=== PATIENT | female | born 1995 | race Caucasian/White ===

== ENCOUNTER 2017-05-17 14:15 | Emergency (ER) | payer OTHER ==
[~2017-05-17] VITALS: Ht 162.6 cm; Wt 75.0 kg
[~2017-05-17 14:15] MED LIST: FERR SULFATE325 MG PO; KLOR-CON M2020 MEQ OR; PERCOCET 5/321 COMBO PO; PRENATAL3 PO; PRILOSEC OTC20 MG OR; ZOFRAN ODT8 MG OR
[2017-05-17] MEDS ORDERED: OB COMPLETE/DHA PO (14:45)
[2017-05-17 15:07] LABS: URINE BILIRUBIN - DIPSTICK NEGATIVE (NEGATIVE); URINE BLOOD DIPSTICK NEGATIVE (NEGATIVE); URINE CLARITY CLEAR; URINE COLOR YELLOW; URINE GLUCOSE - DIPSTICK NEGATIVE (NEGATIVE); URINE KETONE NEGATIVE (NEGATIVE); URINE LEUK ESTERASE NEGATIVE (NEGATIVE); URINE NITRITE - DIPSTICK NEGATIVE (Negative); URINE PROTEIN - DIPSTICK NEGATIVE (NEG-TRACE); URINE SPECIFIC GRAVITY >=1.030; URINE UROBILINOGEN - DIPSTICK 0.2 E.U./dL (0.2)
[2017-05-17 15:12] LABS: HEMATOCRIT 31.7 % (37.0-47.0); HEMOGLOBIN 11.1 g/dl (12.0-16.0); IMMATURE GRANULOCYTES 0.4 % (0.0-1.0); MEAN CELL VOLUME 90.1 fL CALC (80.0-100.0); MEAN CORPUSCULAR HGB 31.5 pG CALC (26.0-32.0); NEUT# 6.62 thou/uL (2.00-7.15); RED BLOOD COUNT 3.52 mill/uL (4.20-5.60); RED CELL DISTRI WIDTH 13.1 % (11.5-15.5)
[2017-05-17 15:22] LABS: ALBUMIN 4.1 g/dL (3.2-5.0); ALKALINE PHOSPHATASE 41 u/l (38-126); ANION GAP 16 (6-22 (CALC)); BILIRUBIN, TOTAL 0.3 mg/dL (0.0-1.4); BUN 9 mg/dL (7-17); BUN/CREATININE RATIO 20 (12-20 (CALC)); CALCIUM 9.2 mg/dL (8.4-10.2); CARBON DIOXIDE 19 mmol/l (22-30); CHLORIDE 109 mmol/l (95-108); CREATININE 0.5 mg/dL (0.5-1.0); GFR > 60 ML/MIN (>=60 (CALC)); GFR FOR AFR.AMER. > 60 ML/MIN (>=60 (CALC)); GLUCOSE 112 mg/dL (65-105); POTASSIUM 3.5 mmol/l (3.5-5.1); SGOT/AST 23 u/l (14-36); SGPT/ALT 19 u/l (9-52); SODIUM 141 mmol/l (137-146); TOTAL PROTEIN 6.9 g/dL (6.3-8.2)
[2017-05-17 15:50] VITALS: BP 114/51
[2017-05-17 16:04] LABS: BETA-HCG, QUANT(RESULT NUMBER) 49650 mIU/mL
== END 2017-05-17 16:10 | disposition home or self-care (01) | DRG 552 ==
LOC: ED 14:15
PROVIDERS: Emergency Medicine
DX: M54.5 Low back pain (principal); F17.210 Nicotine dependence, cigarettes, uncomplicated; O99.332 Smoking (tobacco) complicating pregnancy, second trimester; Z3A.16 16 weeks gestation of pregnancy

== ENCOUNTER 2017-09-24 18:18 | Emergency (ER) | payer OTHER ==
[~2017-09-24] VITALS: Ht 162.6 cm; Wt 80.0 kg
[~2017-09-24 18:18] MED LIST changes: +OB COMPLETE/DHA PO
[2017-09-24] MEDS ORDERED: AMOX/K CLAV875 M1 PO (18:35)
[2017-09-24] MEDS ORDERED: MOTRIN800 MG PO (18:48)
[2017-09-24] MEDS ORDERED: TYLENOL # 31 TA1 PO (18:48)
[2017-09-24] MEDS ORDERED: PRE-NATAL PO (18:49)
[2017-09-24] MEDS ORDERED: ZPAK PO (19:28)
[2017-09-24 19:30] VITALS: BP 106/54
== END 2017-09-24 19:30 | disposition home or self-care (01) | DRG 781 ==
LOC: ED 18:18
DX: O26.893 Other specified pregnancy related conditions, third trimester (principal); J02.9 Acute pharyngitis, unspecified; O99.333 Smoking (tobacco) complicating pregnancy, third trimester; F17.210 Nicotine dependence, cigarettes, uncomplicated; R05 Cough; R51 Headache; Z3A.00 Weeks of gestation of pregnancy not specified

== ENCOUNTER 2017-10-18 09:52 | Inpatient (IN) | payer OTHER ==
[~2017-10-18] VITALS: Ht 162.6 cm; Wt 88.9 kg
[~2017-10-18 09:52] MED LIST changes: +AMOX/K CLAV875 M1 PO; +MOTRIN800 MG PO; +PRE-NATAL PO; +TYLENOL # 31 TA1 PO; +ZPAK PO
[2017-10-19] VITALS (13 sets, daily range): BP systolic 100–116; BP diastolic 42–61
--- NOTE | 2017-10-19 00:10 | NUR ---
Pt ambulated onto unit with steady gait accompanied by her boyfriend. Pt weighed and escorted to room 203, changed into gown and oriented to room/call [place]. Contact precautions in place, vital signs taken, curtis shave done by Jeremías Huntley RNC, physical assessment and admission intake completed, allergy and fall alert bands put on right wrist. IV started left wrist, monitor applied with explanation.
--- NOTE | 2017-10-19 00:50 | NUR ---
Pt a smoker, states smoked on the way to the hospital, FHR average 105 and minimal; pt tilted to right side.
--- NOTE | 2017-10-19 01:00 | NUR ---
LR bolus 500ml infusing after IV started r/t FHR low
--- NOTE | 2017-10-19 01:30 | NUR ---
After fluid bolus LR 500 ml and turning pt not helping improve heart rate, O2 at 10L via tight partial non rebreather put in place. Pts O2 sat prior to O2 was 95%, after O2=99%.
--- NOTE | 2017-10-19 01:39 | NUR ---
Jeremías Huntley, RNC call to Dr. Evans re: FHR is avg of 95 right now, was 105 when she came in, pt smokes and smoked on the way in, thought it might get better with fluids so pt has been turned, IV bolus and now has 02 on at 10L, FHR is mostly minimal since placed on monitor, no contractions and pt is asleep. stated he would come in.
--- NOTE | 2017-10-19 01:41 | NUR ---
Call back from Dr. Evans re: obtain a biophysical profile and call him back if it is not 07/05. [id number] RN call to [facility] [employer] staff re: need US Tech to come in for a biophysical.
--- NOTE | 2017-10-19 02:00 | NUR ---
Pt up to bathroom for 7 min, O2 off when placed back in bed
--- NOTE | 2017-10-19 02:10 | NUR ---
Dr. Evans present on the unit, viewed monitor strip. Awaiting US
--- NOTE | 2017-10-19 02:19 | NUR ---
US present on the unit, informed FHR is low, down to 95 at times, MRSA precautions pt had one negative, culture sent yesterday and this morning.
--- NOTE | 2017-10-19 02:38 | NUR ---
Pt placed back on monitor per Dr. Nathan Dr. remaining on the unit.
--- NOTE | 2017-10-19 02:50 | NUR ---
Dr. Evans stated pt has polyhydramnios and lots of meconium in amniotic fluid, he believes biophysical will be 8/8; since varibility is better at this time, we will proceed with surgery in the morning, but to let him know if she has any decelerations.
[2017-10-19 03:10] LABS: BARBITURATES NEGATIVE (NEGATIVE); COCAINE NEGATIVE (NEGATIVE); METHADONE NEGATIVE (NEGATIVE); OXCYCODONE NEGATIVE (NEGATIVE); TETRAHYDROCANNABIONOL POSITIVE (NEGATIVE); TRICYLIC ANTIDEPRESSANTS NEGATIVE (NEGATIVE)
--- NOTE | 2017-10-19 04:00 | NUR ---
Pt asleep without distress.
--- NOTE | 2017-10-19 04:56 | NUR ---
O2 via NC at 2L for O2 sat of 93%. Pt asleep and did not awaken when O2 placed.
--- NOTE | 2017-10-19 07:23 | NUR ---
PT PREPARED FOR OR, TO CS ROOM VIA WC WITH OR NURSE.
--- NOTE | 2017-10-19 09:48 | NUR ---
PT TO ROOM 203 VIA STRETCHER, PT ABLE TO MOVE LEGS, AWAKE, ABLE TO DEEP BREATHE. SADIE CARE DONE, PT SETTLED IN BED, S/O AT SIDE.
--- NOTE | 2017-10-19 10:30 | NUR ---
PT RESTS QUIETLY, S/O AT SIDE.
--- NOTE | 2017-10-19 12:30 | NUR ---
PT SITS QUIETLY IN BED, WAS HOLDING INFANT, POSITIVE BONDING. SADIE CARE DONE, LOCHIA MOD ON PAD, SCANT ON PERINEUM. DARK RUBRA, FUNDUS FIRM AT [facility].
--- NOTE | 2017-10-19 14:30 | NUR ---
PT REQUESTING PAIN MEDICATION FOR INCISIONAL DISCOMFORT OF 5/10. ANTIBIOTIC ADMINISTERED. FRESH ICE REPLENISHED. NO ADDITIONAL NEEDS AT THIS TIME. SIGNIFICANT OTHER AT THE BEDSIDE.
--- NOTE | 2017-10-19 15:30 | NUR ---
OWENS REMOVED, PT ASKING FOR REMOVAL. PT OOB TO BATHROOM SADIE CARE DONE, PT THEN TO CHAIR TO HOLD INFANT.
--- NOTE | 2017-10-19 16:25 | NUR ---
DR ARANDA IN TO SEE PT, PT MAY EAT FOOD, SOFT DIET ORDERED.
--- NOTE | 2017-10-19 17:30 | NUR ---
PT SITS TO EAT DINNER, S/O AT SIDE.
--- NOTE | 2017-10-19 19:30 | NUR ---
BEDSIDE REPORT RECEIVED FROM YUE ROMANO. PT SITTING UP ON EDGE OF BED WITH FAMILY AT BEDSIDE. C/O MILD PAIN TO ABDOMINAL INCISION THAT IS MANAGEABLE WITHOUT MEDICATION AT THIS TIME. RESPIRATIONS EVEN AND UNLABORED WITH EXPIRATORY WHEEZING TO RIGHT LOWER LOBES. IS AT BEDSIDE AND USE REVIEWED. ABOMINAL DRESSING HAS MODERATE SANGUINOUS DRAINAGE; DRESSING CHANGED AND INCISION CLEANSED WITH NS, ABD PAD APPLIED WITH TAPE. PT UP TO VOID 625ML OF CLEAR YELLOW URINE WITH NO DIFFICULTIES. PLAN OF CARE DISCUSSED. PT ENCOURAGED TO VERBALIZE CONCERNS. STATES UNDERSTANDING. SAFETY MEASURES IN PLACE. CALL LIGHT SYSTEM REVIEWED AND IN REACH.
--- NOTE | 2017-10-20 00:03 | NUR ---
PT REQUESTED TORDOL FOR INCISIONAL PAIN OF 6/10. GIVEN WITH GOOD EFFECT. 2 FAMILY MEMBERS REMAIN AT BEDSIDE. RESPIRATIONS EVEN AND UNLABORED AND OXYGEN SATURATION REMAINS GREATER THAN 92% ON ROOM AIR. NO FURTHER REQUESTS BY PT AT THIS TIME. SAFETY MEASURES IN PLACE. CALL LIGHT WITHIN REACH.
--- NOTE | 2017-10-20 00:37 | NUR ---
PT REMOVED IV FLUIDS AND TURNED OFF PUMP ON HER OWN. DECLINES IV FLUIDS AFTER EDUCATION ON THEIR BENEFITS. BREAST FEEDING AT THIS TIME AND REQUESTS FORMULA.
--- NOTE | 2017-10-20 03:27 | NUR ---
PT SLEEPING SOUNDLY. NO SIGNS OF DISTRESS. SIGNIFICANT OTHER AT BEDSIDE.
[2017-10-20 05:15] VITALS: BP 110/62
--- NOTE | 2017-10-20 05:28 | NUR ---
INFANT. COMPLAINS OF PAIN. MEDICATED WITH LORTAB. SEE E-MAR FOR DETAILS.
--- NOTE | 2017-10-20 05:30 | NUR ---
Received report on patient, who is resting quietly in bed, baby in her arms; positive bonding observed. Patient assisted up to use bathroom, voided, performed pericare. Hand hygiene performed by patient after using the bathroom and before handling her baby. VS: 98.7-78-18; BP 110/62. States that her pain level is 4/10 "achy-tenderness" pointing to lower abdomen & incisional area. Patient's spouse (significant other - father of the baby), is rooming in tonight beside the mom. Upper side-rails up, bed in low position, and call light within reach. Continue to monitor both mom and baby thru night and into day shift.
[2017-10-20 05:42] LABS: HEMATOCRIT 31.2 % (37.0-47.0); HEMOGLOBIN 10.8 g/dl (12.0-16.0); IMMATURE GRANULOCYTES 0.6 % (0.0-1.0); MEAN CORPUSCULAR HGB 33.2 pG CALC (26.0-32.0); MEAN CORPUSCULAR HGB CONC 34.6 g/L CALC (32.0-36.0); NEUT# 7.02 thou/uL (2.00-7.15); RED BLOOD COUNT 3.25 mill/uL (4.20-5.60)
--- NOTE | 2017-10-20 08:00 | NUR ---
Positive bonding observed between mom, dad, and infant. Mom states her pain level has reduced from 6-8 down to 4 out of 10. She is sitting up for breakfast. Head to toe assessment performed; abdominal dressing is clean, dry, and occlusive. No active bleeding or signs of infection observed. Saline lock located in right wrist without a cap; one replaced; plan to discontinue as she has received her two doses of Ancef post-op. Continue to monitor both mom and .
--- NOTE | 2017-10-20 10:00 | NUR ---
Patient ambulates in room; earlier this morning, she walked downstairs to snack machines. Dr. Evans here at 0900 to examine patient; plan is for patient to to home tomorrow as long as she feels strong enough and the baby is alright, too.
--- NOTE | 2017-10-20 13:00 | NUR ---
Patient complaining of pain and tenderness in the abdominal/surgical incision area. Medicated with Motrin 600 mg and instructed to call for nursing assistance as needed.
[2017-10-20 14:10] VITALS: BP 109/51
--- NOTE | 2017-10-20 14:15 | NUR ---
Patient complains of pain 10/10, moaning, groaning and states that she does not feel good. Inspected her abdominal dressing which remains clean, dry, and occlusive. Medicated with Lortab 7.5 mg, and encouraged patient, when she feels better, to take a warm shower as this may also help her feel better. She verbalized understanding.
--- NOTE | 2017-10-20 16:19 | NUR ---
PATIENT IN ROOM WITH . TOOK SHOWER. NO CONCERNS AT THIS TIME.
--- NOTE | 2017-10-20 17:45 | NUR ---
POC REVIEWED WITH PT, UNDERSTANDING VERBALIZED. PT UP EATING DINNER, DENIES ANY NEEDS OR CONCERNS AT THIS TIME
[2017-10-20 19:25] VITALS: BP 122/80
--- NOTE | 2017-10-20 19:25 | NUR ---
1850: REPORT RECEIVED BY Shanita ALTAMIRANO. 192: ASSESSMENT DONE AND VS WNL CHARTED . PT STATED PAIN IS 6/10 IN LOWER ABDOMEN. MEDICATED PT SEE EMAR. PT STATED THAT SHE IS PASSING GAS. ENCOURAGE PT TO USE INCENTIVE SPIROMETER. PT DENIES ANY NEEDS AT THIS TIME.
--- NOTE | 2017-10-20 20:35 | NUR ---
DR. ARANDA AT BEDSIDE. DISCUSSED PLAN OF CARE TO PT.THAT SHE MAY GO HOME TOMORROW. PT VERBALIZED UNDERSTANDING.
--- NOTE | 2017-10-20 22:56 | NUR ---
PT IS HOLDING INFANT IN ARMS. PT STATED PAIN IS 4/10 IN LOWER ABDOMEN. MEDICATED PT SEE EMAR. NO S/S DISTRESS NOTED ON PT. PT STATED THAT SHE HAS BEEN AMBULATING. PT DENIES ANY NEEDS AT THIS TIME.
--- NOTE | 2017-10-21 01:41 | NUR ---
PT IS AMBULATING IN ROOM. ICE CHIPS GIVEN PER PT REQUEST. PT STATED PAIN IS 5/10 IN LOWER ABDOMEN AND MEDICATED PT SEE EMAR. PT BOYFRIEND IS IN ROOM. PT DENIES ANY OTHER NEEDS AT THIS TIME.
[2017-10-21 04:29] VITALS: BP 100/57
--- NOTE | 2017-10-21 04:32 | NUR ---
PT IS RESTING IN BED. PT DENIES ANY NEEDS AT THIS TIME. BOYFRIEND IN ROOM.
--- NOTE | 2017-10-21 05:26 | NUR ---
GETTING REPORT READY FOR ON COMING SHIFT.
--- NOTE | 2017-10-21 06:40 | NUR ---
PT IS SLEEPING WITH NO S/S DISTRESS NOTED.
--- NOTE | 2017-10-21 12:00 | NUR ---
PT REQUESTS TO BE DISCHARGED HOME AT THIS TIME. PT IS COMFORTABLE WITH CARE AND IN NO DISTRESS AT THIS TIME. 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 PT VITALS ARE STABLE AND BLEEDING IS VERY LIGHT. PT UNDERSTANDS TO MAKE A FOLLOW UP APPOINTMENT IN 2 WEEKS TO ASSESS HER INCISION.
[2017-10-21 12:30] VITALS: BP 126/72
--- NOTE | 2017-10-21 12:49 | NUR ---
PT LEFT AMBLATORY WITH SIGNIFIGANT OTHER AND IN CAR SEAT. PT IN NO PAIN AND NO DISTRESS AT THIS TIME. PT UNDERSTANDS TO CALL PHYSICIAN IF SHE HAS ANY CONCERNS.
== END 2017-10-21 12:40 | disposition home or self-care (01) | DRG 766 ==
LOC: OB 10-19 00:09
PROVIDERS: ADMIT Obstetrics & Gynecology; ATTEND Obstetrics & Gynecology
PROC: 10D00Z1 Extraction of Products of Conception, Low, Open Approach (ICD-10-PCS; principal; 2017-10-19)
DX: O34.211 Maternal care for low transverse scar from previous cesarean delivery (principal); F17.210 Nicotine dependence, cigarettes, uncomplicated; N85.8 Other specified noninflammatory disorders of uterus; O99.334 Smoking (tobacco) complicating childbirth; Z3A.39 39 weeks gestation of pregnancy; Z37.0 Single live birth
CPT/HCPCS: J2270

== ENCOUNTER 2017-11-05 15:20 | Emergency (ER) | payer MEDICAID ==
[~2017-11-05] VITALS: Ht 162.6 cm; Wt 72.0 kg
[2017-11-05] MEDS ORDERED: TRIAMCINOLON0.13 EX (15:50)
[2017-11-05 16:15] VITALS: BP 134/77
== END 2017-11-05 16:15 | disposition home or self-care (01) | DRG 951 ==
LOC: ED 15:20
DX: Z76.0 Encounter for issue of repeat prescription (principal); L30.9 Dermatitis, unspecified; F17.210 Nicotine dependence, cigarettes, uncomplicated

== ENCOUNTER 2019-07-21 10:55 | Emergency (ER) | payer MEDICAID ==
[~2019-07-21] VITALS: Ht 162.6 cm; Wt 77.0 kg
[~2019-07-21 10:55] MED LIST changes: +TRIAMCINOLON0.13 EX
[2019-07-21 11:09] VITALS: BP 120/78
[2019-07-21] MEDS ORDERED: AMOX/K CLAV875 M1 PO (11:29)
== END 2019-07-21 11:35 | disposition home or self-care (01) ==
LOC: ED 10:55
DX: H66.91 Otitis media, unspecified, right ear (principal); H72.91 Unspecified perforation of tympanic membrane, right ear; J32.9 Chronic sinusitis, unspecified; F17.210 Nicotine dependence, cigarettes, uncomplicated

== ENCOUNTER 2019-08-16 17:59 | Emergency (ER) | payer MEDICAID ==
[~2019-08-16] VITALS: Ht 162.6 cm; Wt 81.8 kg
[2019-08-16 20:30] VITALS: BP 132/62
== END 2019-08-16 20:30 | disposition home or self-care (01) ==
LOC: ED 17:59
DX: S00.12XA Contusion of left eyelid and periocular area, initial encounter (principal); S00.531A Contusion of lip, initial encounter; S00.33XA Contusion of nose, initial encounter; S00.81XA Abrasion of other part of head, initial encounter; F17.200 Nicotine dependence, unspecified, uncomplicated; Y04.0XXA Assault by unarmed brawl or fight, initial encounter

== ENCOUNTER 2021-01-05 11:09 | Emergency (ER) | payer OTHER ==
[~2021-01-05] VITALS: Ht 162.6 cm; Wt 70.0 kg
[2021-01-05 12:55] VITALS: BP 118/63
== END 2021-01-05 12:55 | disposition home or self-care (01) | DRG 605 ==
LOC: ED 11:09
PROC: 0HQFXZZ Repair Right Hand Skin, External Approach (ICD-10-PCS; principal; 2021-01-05)
DX: S61.011A Laceration without foreign body of right thumb without damage to nail, initial encounter (principal); F17.200 Nicotine dependence, unspecified, uncomplicated; W31.82XA Contact with other commercial machinery, initial encounter; Y93.89 Activity, other specified; Y92.89 Other specified places as the place of occurrence of the external cause; Y99.0 Civilian activity done for income or pay

== ENCOUNTER 2021-07-11 18:37 | Emergency (ER) | payer SELFPAY ==
[2021-07-11 19:57] LABS: URINE BLOOD DIPSTICK MODERATE (NEGATIVE); URINE COLOR YELLOW; URINE GLUCOSE - DIPSTICK NEGATIVE (NEGATIVE); URINE KETONE 15 mg/dL (NEGATIVE); URINE LEUK ESTERASE NEGATIVE (NEGATIVE); URINE PROTEIN - DIPSTICK 100 mg/dL (NEG-TRACE); URINE SPECIFIC GRAVITY >=1.030; URINE UROBILINOGEN - DIPSTICK 0.2 E.U./dL (0.2)
[2021-07-11 19:58] LABS: IMMATURE GRANULOCYTES 0.2 % (0.0-5.0); MEAN CELL VOLUME 101.1 fL CALC (80.0-100.0); MEAN CORPUSCULAR HGB 33.4 pG CALC (26.0-32.0); MEAN CORPUSCULAR HGB CONC 33.1 g/dL CAL (32.0-36.0); NEUT# 11.42 thou/uL (2.00-7.15); RED BLOOD COUNT 4.7 mill/uL (4.20-5.60); RED CELL DISTRI WIDTH 11.5 % (11.5-15.5)
[2021-07-11 20:02] LABS: URINE BILIRUBIN - DIPSTICK NEGATIVE (NEGATIVE); URINE NITRITE - DIPSTICK NEGATIVE (Negative)
[2021-07-11 20:05] LABS: HEMATOCRIT 47.5 % (37.0-47.0); HEMOGLOBIN 15.7 g/dl (12.0-16.0)
[2021-07-11 20:12] LABS: URINE BACTERIA FEW hpf; URINE MUCUS MANY hpf (NONE-FEW); URINE SQUAMOUS EPITHELIAL CELL FEW EPI/hpf (0-FEW)
[2021-07-11 20:34] LABS: ALBUMIN 5.2 g/dL (3.2-5.0); ALKALINE PHOSPHATASE 75 u/l (38-126); ANION GAP 19 (6-22 (CALC)); BILIRUBIN, TOTAL 1.1 mg/dL (0.0-1.4); BUN 13 mg/dL (7-17); BUN/CREATININE RATIO 16 (12-20 (CALC)); CARBON DIOXIDE 27 mmol/l (22-30); CHLORIDE 95 mmol/l (95-108); CPK 146 u/l (30-165); CREATININE 0.8 mg/dL (0.5-1.0); ETHYL ALCOHOL 0 mg/dl (0-30); GFR > 60 ML/MIN (>=60 (CALC)); GFR FOR AFR.AMER. > 60 ML/MIN (>=60 (CALC)); LIPASE 57 u/l (23-300); SGOT/AST 40 u/l (14-36); SODIUM 137 mmol/l (137-146); TOTAL PROTEIN 9.2 g/dL (6.3-8.2)
[2021-07-11 20:49] LABS: MYOGLOBIN 59 ng/mL (0 - 62)
[2021-07-11] MEDS ORDERED: DOXYCYCL HYC100 MG PO (21:59)
[2021-07-11 22:14] VITALS: BP 142/72
== END 2021-07-11 22:35 | disposition home or self-care (01) | DRG 897 ==
LOC: ED 18:37
PROVIDERS: Family Medicine
DX: F15.10 Other stimulant abuse, uncomplicated (principal); J40 Bronchitis, not specified as acute or chronic; F17.200 Nicotine dependence, unspecified, uncomplicated; Z20.822 Contact with and (suspected) exposure to COVID-19